=== PATIENT | male | born 1975 | race Caucasian/White ===

== ENCOUNTER 2023-05-24 09:00 | Outpatient (OUT) | payer OTHER, SELFPAY ==
[2023-05-24 10:18] LABS: Alanine Aminotransferase 30 U/L (16-63); Albumin Level 3.4 g/dL (3.4-5.0); Alkaline Phosphatase 62 U/L (46-116); Anion Gap 10.3; Aspartate Amino Transferase 19 U/L (15-37); BUN Creatinine Ratio 22.4; Bilirubin Total 0.5 mg/dL (0.2-1.0); Calcium 8.7 mg/dL (8.5-10.1); Carbon Dioxide 32.1 mmol/L (21.0-32.0); Chloride 106 mmol/L (98-107); Chol HDL Ratio 3.8; Cholesterol 214 mg/dL (<=200); Estimated GFR (African America >60 (>=60); Estimated GFR (Non-African Ame >60 (>=60); Globulin 3.4 g/dL; Glucose 97 mg/dL (74-106); HDL Cholesterol 57 mg/dL (40-60); Potassium 4.4 mmol/L (3.5-5.1); Sodium 144 mmol/L (136-145); Total Protein 6.8 g/dL (6.4-8.2); Triglycerides 73 mg/dL (<=150); VLDL CHOLESTEROL 14.6 mg/dL
== END 2023-05-24 09:01 | disposition home or self-care (01) ==
LOC: LAB 09:05
PROVIDERS: PCP Family Medicine; Visit Provider Family Medicine
DX: Z13.1 Encounter for screening for diabetes mellitus (principal); Z13.220 Encounter for screening for lipoid disorders
CPT/HCPCS: 36415; 80053; 80061

== ENCOUNTER 2025-06-08 09:00 | Outpatient (OUT) | payer BC, SELFPAY ==
--- OUTSIDE RECORDS SUMMARY | 2025-05-26 14:30 | XMS_ITS | Encounter Summary ---
Author Organization [facility] Address [address] [place] [address] Care Team Providers Care Third Miller Name Role Phone Zuhair Ferraro MD Primary Care Provider Reason for Visit * ReasonCommentsAnnual Exam Encounter Details DateTypeDepartmentCare Team (Latest Contact Info)Mzongatobwj84/12/2025 2:30 PM ESTOffice Visit [facility] 112 [facility] 100 [place] [address] Zuhair Ferraro MD 112 [facility] 100 [place] [address] Encounter for wellness examination in adult; Advance directive discussed with patient; Screening for diabetes mellitus (DM); Encounter for lipid screening for cardiovascular disease; Overweight Social History Tobacco UseTypesPacks/DayYears UsedDateSmoking Tobacco: NeverSmokeless Tobacco: Never Tobacco Cessation:Counseling Given: Yes Alcohol UseStandard Drinks/WeekCommentsYes2 (1 standard drink = 0.6 oz pure alcohol)Caffeine intake : energy drinksPHQ-2AnswerDate RecordedPatient Health Questionnaire-2 Tpfwp87707/26/2024Housing Stability Vital SignAnswerDate Recorded In the last 12 months, was there a time when you were not able to pay the mortgage or rent on time?No04/17/2023In the last 12 months, how many places have you lived?In the last 12 months, was there a time when you did not have a steady place to sleep or slept in [facility] (including now)?No04/17/2023 Humiliation, Afraid, Rape, and Kick questionnaireAnswerDate RecordedWithin the last year, have you been afraid of your partner or ex-partner?No05/25/2025Within the last year, have you been humiliated or emotionally abused in other ways by your partner or ex-partner?No05/25/2025Within the last year, have you been kicked, hit, slapped, or otherwise physically hurt by your partner or ex-partner?No05/25/2025Within the last year, have you been raped or forced to have any kind of sexual activity by your partner or ex-partner?No05/25/2025 Social Connection and Isolation PanelAnswerDate RecordedIn a typical week, how many times do you talk on the phone with family, friends, or neighbors?Once a week05/25/2025How often do you get together with friends or relatives?Once a week05/25/2025How often do you attend sabianism or mandaeism services?More than 4 times per year05/25/2025Do you belong to any clubs or organizations such as sabianism groups, unions, fraternal or athletic groups, or school groups?Yes 05/25/2025How often do you attend meetings of the clubs or organizations you belong to?1 to 4 times per year05/25/2025re you , , , , never , or living with a partner?Orvrviz8705/25/2025UDIT-C AnswerDate RecordedQ1: How often do you have a drink containing alcohol?2-3 times a week05/25/2025Q2: How many drinks containing alcohol do you have on a typical day when you are drinking?1 or Q3: How often do you have six or more drinks on one occasion?Less than gdkjhix3905/25/2025Overall Financial Resource Strain (CARDIA)AnswerDate RecordedHow hard is it for you to pay for the very basics like food, housing, medical care, and heating?Not hard at all 05/25/2025[facility] [place] of Occupational Health - Occupational Stress QuestionnaireAnswerDate RecordedDo you feel stress - tense, restless, nervous, or anxious, or unable to sleep at night because yourmind is troubled all the time - these days?Not at all05/25/2025Exercise Vital SignAnswerDate RecordedOn average, how many days per week do you engage in moderate to strenuous exercise (like a brisk walk)?5 days05/25/2025On average, how many minutes do you engage in exercise at this level?40 min05/25/2025Hunger Vital SignAnswerDate Recorded Within the past 12 months, you worried that your food would run out before you got the money to buymore.Never true05/25/2025Within the past 12 months, the food you bought just didn't last and you didn't have money to get more.Never true 05/25/2025PRAPARE - TransportationAnswerDate RecordedIn the past 12 months, has lack of transportation kept you from medical appointments or from getting medications?No05/25/2025In the past 12 months, has lack of transportation kept you from meetings, work, or from getting things needed for daily living?No 05/25/2025Housing Stability Vital SignAnswerDate RecordedIn the last 12 months, was there a time when you were not able to pay the mortgage or rent on time?No 05/25/2025In the past 12 months, how many times have you moved where you were living?t any time in the past 12 months, were you homeless or living in a long term (including now)?No05/25/2025B1300 Health LiteracyAnswerDate RecordedHow often do you need to have someone help you when you read instructions, pamphlets, or other written material from your doctor or pharmacy? Never05/25/2025Sex and Gender InformationValueDate RecordedSex Assigned at Not on fileLegal RllTnda7709/26/2022 6:52 PM EDTGender IdentityNot on fileSexual OrientationNot on filedocumented as of this encounter Last Filed Vital Signs Vital SignReadingTime TakenCommentsBlood Fimozdpv102/6805/26/2025 2:34 PM EST Edxtw731605/26/2025 2:34 PM ESTTemperature--Respiratory Rate--Oxygen Hnrcjrnequ49% 05/26/2025 2:34 PM ESTInhaled Oxygen Concentration--Otkpxc19.2 kg (179 lb) 05/26/2025 2:34 PM RQRTcdgcs464.1 cm (5' 5 )05/26/2025 2:34 PM ESTBody Mass Index29.7905/26/2025 2:34 PM ESTdocumented in this encounter Functional Status * Over the past 2 weeks, how often have you been bothered by any of the following problems?QuestionAnswerDate of AssessmentAuthorLittle interest or pleasure in doing thingsNot at all05/26/2025 2:28 PM Robbie October, [place] Feeling down, depressed, or hopelessNot at all05/26/2025 2:28 PM Robbie, October, [facility]USatient Health Questionnaire-2 Nucwy81007/26/2024 2:28 PM Robbie October, [place] documented as of this encounter Progress Notes * Zuhair Ferraro MD - 05/26/2025 2:30 PM EST Images from the original note were not included. Patient ID: Amadou Toth is a 50 y.o. male who presents for: Pt had a referral for a colonoscopy and never went or responded to their calls. Adult Wellness: Advance Directive/Living Will: No Health Care Power of Occupational Health Nurse Manager: No Review of Systems Constitutional: Negative for appetite change, chills, fever and unexpected weight change. Respiratory: Negative for cough, shortness of breath and wheezing. Cardiovascular: Negative for chest pain, palpitations and leg swelling. Gastrointestinal: Negative for abdominal pain, constipation and diarrhea. Genitourinary: Negative for frequency and urgency. Neurological: Negative for light-headedness and headaches. Psychiatric/Behavioral: Negative for behavioral problems and sleep disturbance. The patient is not nervous/anxious. Objective The patient is pleasant and in no acute distress. The head is normocephalic and atraumatic. Both eyes appear grossly normal without obvious lid pathology or icterus. Both ears hearing is grossly intact. The neck is supple and trachea is midline. No masses are appreciated. The anterior cervical lymphatics demonstrates shoddy bilateral nontender lymphadenopathy. There is no supraclavicular lymphadenopathy. The heart is regular rate and rhythm without S3, S4. No murmur. The patient has normal respiratory pattern. The breath sounds are symmetrical without evidence of rhonchi or rales. No wheezing. The skin is warm and dry. The lower extremities have trace edema. Neurologic screening exam is nonfocal. The patient is alert. There is no overt gross evidence of cognitive impairment The patient has good eye contact and speech is clear. Appropriate affect. No significant external hemorrhoids, normal tone , no masses palpable , no melena , no red blood Prostate: symmetrical, smooth, no nodules or masses, nontender, enlarged 1+. 05/26/2025 2:34 PM 03/19/2024 9:10 AM 01/02/2024 8:25 AM 06/21/2023 11:02 AM Vitals BMI 29.79 kg/m2 26.96 kg/m2 26.96 kg/m2 26.96 kg/m2 BSA (m2) 1.93 m2 1.84 m2 1.84 m2 1.84 m2 Systolic 118 110 Diastolic 68 84 Heart Rate 85 SpO2 94 % Height (in) 5' 5 5' 5 5' 5 5' 5 Weight (lb) 179 162 162 162 Visit Report Report Report Report Allergies Allergen Reactions Delilah [Fexofenadine] Dizziness Zyrtec [Cetirizine] Dizziness Current Outpatient Medications on File Prior to Visit Medication Sig Dispense Refill [DISCONTINUED] predniSONE (Deltasone) 10 MG tablet Every 2 day tapering dose; 5,5,4,4,3,3,2,2,1,1,0.5,0.5 31 tablet 0 No current facility-administered medications on file prior to visit. 1. Encounter for wellness examination in adult I have reviewed the patients PMShx, medications, and reconciled the problem list. Health maintenance and risk was reviewed and discussed. I also reviewed and discussed as appropriate; immunizations, colon cancer screening, prostate cancer screening, and any current or recommended lab evaluation. All items were brought up to date unless declined by the patient. 2. Advance directive discussed with patient Patient voluntarily agreed to discuss advance care planning at today's wellness visit. We discussed that an advance directive is a legal document that only goes into effect if the patient is incapacitated and unable to speak for themselves. This would help us to decide what care the patient would want. We discussed emergency treatments to keep the patient alive such as CPR, ventilator use and concept of comfort. We discussed how patients could make their wishes known through a living will, durable power of workers compensation defense attorney for healthcare, or other advanced directives. We discussed telling romano people about their advance and a copy will be kept in the EHR. I discussedthat they should also make me an emergency contact in their cell phone, and/or notify their POA that I have a copy of the advanced directives. 3. Screening for diabetes mellitus (DM) - Comprehensive metabolic panel; Future - Comprehensive metabolic panel 4. Encounter for lipid screening for cardiovascular disease - Lipid panel; Future - Lipid panel 5. Overweight Please Note: Portions of this chart may have been created using voice recognition software. Occasionally a wrong-word or sound-like substitutions may have occurred due to inherent limitations of the voice recognition software. Please read the chart carefully and recognize, using context, where the substitutions may have occurred. documented in this encounter Plan of Treatment NameTypePriorityAssociated DiagnosesOrder ScheduleComprehensive metabolic panel LabRoutine Screening for diabetes mellitus (DM) Expected: 06/07/2025 (Approximate), Expires: 06/07/2026Lipid panelLabRoutine Encounter for lipid screening for cardiovascular disease Expected: 06/07/2025 (Approximate), Expires: 06/07/2026documented as of this encounter Visit Diagnoses Diagnosis Encounter for wellness examination in adult Advance directive discussed with patient Screening for diabetes mellitus (DM) Screening for diabetes mellitus Encounter for lipid screening for cardiovascular disease Overweight documented in this encounter Care Teams Team MemberRelationshipSpecialtyStart DateEnd Date Zuhair Ferraro MD [address] [place] [address] PCP - GeneralFamily Medicine11/20/22documented as of this encounter
--- OUTSIDE RECORDS SUMMARY | 2025-06-08 09:09 | XMS_ITS | Encounter Summary ---
Author Organization [facility] Address [address] [place] [address] Care Team Providers Care Rn Gastroenterology Name Role Phone Zuhair Ferraro MD Primary Care Provider [phone] Encounter Details DateTypeDepartmentCare Team (Latest Contact Info)Jrfutymfzkx38/19/2025bstract [facility] [place] [address] Family Medicine [address] [place] [address] Zuhair Ferraro MD 112 [facility] [address] [place] [address] Social History Tobacco UseTypesPacks/DayYears UsedDateSmoking Tobacco: NeverSmokeless Tobacco: NeverAlcohol UseStandard Drinks/WeekCommentsYes2 (1 standard drink = 0.6 oz pure alcohol)Caffeine intake : energy drinksPHQ-2AnswerDate RecordedPatient Health Questionnaire-2 Vlrlh83607/26/2024Housing Stability Vital SignAnswerDate Recorded In the last 12 months, was there a time when you were not able to pay the mortgage or rent on time?No04/17/2023In the last 12 months, how many places have you lived?In the last 12 months, was there a time when you did not have a steady place to sleep or slept in ashelter (including now)?No04/17/2023 Humiliation, Afraid, Rape, and Kick [...] relatives?Once a week05/25/2025How often do you attend zoroastrian or mormonism services?More than 4 times per year05/25/2025Do you belong to any clubs or organizations such as zoroastrian groups, unions, fraternal or athletic groups, or school groups?Yes 05/25/2025How often do you attend meetings of the clubs or organizations you belong to?1 to 4 times per year05/25/2025re you , , , , never , or living with a partner?Wbxmgvu7305/25/2025UDIT-C AnswerDate RecordedQ1: How often do you have a drink containing alcohol?2-3 times a week05/25/2025Q2: How many drinks containing alcohol do you have on a typical day when you are drinking?1 or Q3: How often do you have six or more drinks on one occasion?Less than njweqyt5005/25/2025Overall Financial Resource Strain (CARDIA)AnswerDate RecordedHow hard is it for you to pay for the very basics like food, housing, medical care, and heating?Not hard at all 05/25/2025[facility] [place] of Occupational Health - Occupational Stress QuestionnaireAnswerDate [...] were you homeless or living in a correction (including now)?No05/25/2025B1300 Health LiteracyAnswerDate RecordedHow often do you need to have someone help you when you read instructions, pamphlets, or other written material from your doctor or pharmacy? Never05/25/2025Sex and Gender InformationValueDate RecordedSex Assigned at Not on fileLegal LrbUexf5309/26/2022 6:52 PM EDTGender IdentityNot on fileSexual OrientationNot on filedocumented as of this encounter Plan of Treatment Not on file documented as of this encounter Visit Diagnoses Not on filedocumented in this encounter Care Teams Team MemberRelationshipSpecialtyStart DateEnd Date Zuhair Ferraro MD [address] [place] [address] PCP - GeneralFamily Medicine11/20/22documented as of this encounter
--- OUTSIDE RECORDS SUMMARY | 2025-06-08 09:09 | XMS_ITS | Encounter Summary ---
Author Organization [facility] Address [address] [place] [address] Care Team Providers Care Delivery Analyst Name Role Phone Zuhair Ferraro MD Primary Care Provider [phone] Encounter Details DateTypeDepartmentCare Team (Latest Contact Info)Ifftqaniixq72/13/2025Orders Only [facility] [address] Medicine [address] [address] Kanu Ro R, DO [address] [place] [phone] Social History Tobacco UseTypesPacks/DayYears UsedDateSmoking Tobacco: NeverSmokeless Tobacco: NeverAlcohol UseStandard Drinks/WeekCommentsYes2 (1 standard drink = 0.6 oz pure alcohol)Caffeine intake : energy drinksPHQ-2AnswerDate RecordedPatient Health Questionnaire-2 Fllav87307/26/2024Housing Stability Vital SignAnswerDate Recorded In the last [...] relatives?Once a week05/25/2025How often do you attend congregation or anabaptism services?More than 4 times per year05/25/2025Do you belong to any clubs or organizations such as congregation groups, unions, fraternal or athletic groups, or school groups?Yes 05/25/2025How often do you attend meetings of the clubs or organizations you belong to?1 to 4 times per year05/25/2025re you , , , , never , or living with a partner?Gibuuyi2305/25/2025UDIT-C AnswerDate RecordedQ1: How often do you have a drink containing alcohol?2-3 times a week05/25/2025Q2: How many drinks containing alcohol do you have on a typical day when you are drinking?1 or Q3: How often do you have six or more drinks on one occasion?Less than wpoozpb4505/25/2025Overall Financial Resource Strain (CARDIA)AnswerDate RecordedHow hard is it for you to pay for the very basics like food, housing, medical care, and heating?Not hard at all 05/25/2025[facility] [place] of Occupational Health - Occupational Stress QuestionnaireAnswerDate [...] were you homeless or living in a fdc (including now)?No05/25/2025B1300 Health LiteracyAnswerDate RecordedHow often do you need to have someone help you when you read instructions, pamphlets, or other written material from your doctor or pharmacy? Never05/25/2025Sex and Gender InformationValueDate RecordedSex Assigned at Not on fileLegal ChlEdgh2209/26/2022 6:52 PM EDTGender IdentityNot on fileSexual OrientationNot on filedocumented as of this encounter Plan of Treatment Not on file documented as of this encounter Procedures Procedure NamePriorityDate/TimeAssociated DiagnosisCommentsCBC (INCLUDES DIFF/PLT)Cmfsydn0005/12/2025 2:43 PM EDTLIPID LWWNVOnqjqhz74/29/2025 2:43 PM EDT COMPREHENSIVE METABOLIC HFRNCBcnxavr07/29/2025 2:43 PM EDTdocumented in this encounter Results * CBC and differential (05/12/2025 2:43 PM EDT)Specimen (Source)Anatomical Location / LateralityCollection Method / VolumeCollection TimeReceived Time BloodVenous blood specimen / Unknown Narrative Authorizing ProviderResult TypeResult StatusBrett R Kuns DOLAB BLOOD ORDERABLES Final Result * Comprehensive metabolic panel (05/12/2025 2:43 PM EDT)Specimen (Source) Anatomical Location / LateralityCollection Method / VolumeCollection Time Received TimeBloodVenous blood specimen / Unknown Narrative Authorizing ProviderResult TypeResult StatusBrett R Kuns DOLAB BLOOD ORDERABLES Final Result * Lipid panel (05/12/2025 2:43 PM EDT)Specimen (Source)Anatomical Location / LateralityCollection Method / VolumeCollection TimeReceived TimeBloodVenous blood specimen / Unknown Narrative Authorizing ProviderResult TypeResult StatusBrett R Kuns DOLAB BLOOD ORDERABLES Final Result documented in this encounter Visit Diagnoses Not on filedocumented in this encounter Care Teams Team MemberRelationshipSpecialtyStart DateEnd Date Zuhair Ferraro MD [address] [place] [id number] PCP - GeneralFamily Medicine11/20/22documented as of this encounter
--- OUTSIDE RECORDS SUMMARY | 2025-06-08 09:09 | XMS_ITS | Encounter Summary ---
Author Organization [facility] Address [address] [place] [address] Care Team Providers Care Engraver Copperplate Name Role Phone Zuhair Ferraro MD Primary Care Provider [phone] Encounter Details DateTypeDepartmentCare Team (Latest Contact Info)Iwwroamyfbb63/11/2025Travel Social History Tobacco UseTypesPacks/DayYears UsedDateSmoking Tobacco: NeverSmokeless Tobacco: NeverAlcohol UseStandard Drinks/WeekCommentsYes2 (1 standard drink = 0.6 oz pure alcohol)Caffeine intake : energy drinksPHQ-2AnswerDate RecordedPatient Health Questionnaire-2 Heamr81007/26/2024Housing Stability Vital SignAnswerDate Recorded In the last 12 months, was there a time when you were not able to pay the mortgage or rent on time?No04/17/2023In the last 12 months, how many places have you lived?In the last 12 months, was there a time when you did not have a steady place to sleep or slept in [facility] (including now)?No04/17/2023 Humiliation, Afraid, Rape, and Kick [...] week05/25/2025How often do you attend congregation or episcopalian services?More than 4 times per year05/25/2025Do you belong to any clubs or organizations such as congregation groups, unions, fraRe[employer] or athletic groups, or school groups?Yes 05/25/2025How often do you attend meetings of the clubs or organizations you belong to?1 to 4 times per year05/25/2025re you , , , , never , or living with a partner?Ilslfhv7605/25/2025UDIT-C AnswerDate RecordedQ1: How often do you have a drink containing alcohol?2-3 times a week05/25/2025Q2: How many drinks containing alcohol do you have on a typical day when you are drinking?1 or Q3: How often do you have six or more drinks on one occasion?Less than oxauhva4905/25/2025Overall Financial Resource Strain (CARDIA)AnswerDate RecordedHow hard is it for you to pay for the very basics like food, housing, medical care, and heating?Not hard at all 05/25/2025[facility] [place] of Occupational Health - Occupational Stress QuestionnaireAnswerDate [...] were you homeless or living in a mcc (including now)?No05/25/2025B1300 Health LiteracyAnswerDate RecordedHow often do you need to have someone help you when you read instructions, pamphlets, or other written material from your doctor or pharmacy? Never05/25/2025Sex and Gender InformationValueDate RecordedSex Assigned at Not on fileLegal TtdFmin7609/26/2022 6:52 PM EDTGender IdentityNot on fileSexual OrientationNot on filedocumented as of this encounter Functional Status * AUDIT-C ScoreAnswerDate of EhrseklrznDuksrq406/11/2025 2:11 PM Mat, Generic * Q1: How often do you have a drink containing alcohol?AnswerDate of Assessment Author2-3 times a week05/25/2025 2:11 PM Mat Generic * Q2: How many drinks containing alcohol do you have on a typical day when you are drinking?AnswerDate of AssessmentAuthor1 or 2:11 PM EST Jack Generic * Q3: How often do you have six or more drinks on one occasion?AnswerDate of AssessmentAuthorLess than tqtjorn5805/25/2025 2:11 PM ESTMychart, Generic documented as of this encounter Plan of Treatment Not on file documented as of this encounter Visit Diagnoses Not on filedocumented in this encounter Care Teams Team MemberRelationshipSpecialtyStart DateEnd Date Zuhair Ferraro MD [address] [place] [id number] PCP - GeneralFamily Medicine11/20/22documented as of this encounter
--- OUTSIDE RECORDS SUMMARY | 2025-06-08 09:09 | XMS_ITS | Encounter Summary ---
Author Organization [facility] Address [address] [place] [address] Care Team Providers Care Condenser Tester Name Role Phone Zuhair Ferraro MD Primary Care Provider Encounter Details DateTypeDepartmentCare Team (Latest Contact Info)Atadwrvzarx19/12/2025Bamboo flowsheet [facility] [place] [address] Family Medicine [address] [place] [address] Zuhair Ferraro MD [address] [place] [address] Social History Tobacco UseTypesPacks/DayYears UsedDateSmoking Tobacco: NeverSmokeless Tobacco: NeverAlcohol UseStandard Drinks/WeekCommentsYes2 (1 standard drink = 0.6 oz pure alcohol)Caffeine intake : energy drinksPHQ-2AnswerDate RecordedPatient Health Questionnaire-2 Gjnis17207/26/2024Housing Stability Vital SignAnswerDate Recorded In the last [...] relatives?Once a week05/25/2025How often do you attend yazidism or faith services?More than 4 times per year05/25/2025Do you belong to any clubs or organizations such as yazidism groups, unions, fraternal or athletic groups, or school groups?Yes 05/25/2025How often do you attend meetings of the clubs or organizations you belong to?1 to 4 times per year05/25/2025re you , , , , never , or living with a partner?Bsyqedi7505/25/2025UDIT-C AnswerDate RecordedQ1: How often do you have a drink containing alcohol?2-3 times a week05/25/2025Q2: How many drinks containing alcohol do you have on a typical day when you are drinking?1 or Q3: How often do you have six or more drinks on one occasion?Less than ctirsmf2805/25/2025Overall Financial Resource Strain (CARDIA)AnswerDate RecordedHow hard is it for you to pay for the very basics like food, housing, medical care, and heating?Not hard at all 05/25/2025[facility] [place] of Occupational Health - Occupational Stress QuestionnaireAnswerDate [...] were you homeless or living in a prison (including now)?No05/25/2025B1300 Health LiteracyAnswerDate RecordedHow often do you need to have someone help you when you read instructions, pamphlets, or other written material from your doctor or pharmacy? Never05/25/2025Sex and Gender InformationValueDate RecordedSex Assigned at Not on fileLegal MmxMovp5909/26/2022 6:52 PM EDTGender IdentityNot on fileSexual OrientationNot on filedocumented as of this encounter Plan of Treatment Not on file documented as of this encounter Visit Diagnoses Not on filedocumented in this encounter Care Teams Team MemberRelationshipSpecialtyStart DateEnd Date Zuhair Ferraro MD [address] [place] [address] PCP - GeneralFamily Medicine11/20/22documented as of this encounter
--- OUTSIDE RECORDS SUMMARY | 2025-06-08 09:09 | XMS_ITS | Encounter Summary ---
Author Organization [facility] Address [address] [place] [address] Care Team Providers Care Shutdown Coordinator Name Role Phone Zuhair Ferraro MD Primary Care Provider [phone] Encounter Details DateTypeDepartmentCare Team (Latest Contact Info)Jokelsjcjxb56/12/2025Travel Social History Tobacco UseTypesPacks/DayYears UsedDateSmoking Tobacco: NeverSmokeless Tobacco: NeverAlcohol UseStandard Drinks/WeekCommentsYes2 (1 standard drink = 0.6 oz pure alcohol)Caffeine intake : energy drinksPHQ-2AnswerDate RecordedPatient Health Questionnaire-2 Kaguj07407/26/2024Housing Stability Vital SignAnswerDate Recorded In the last 12 months, was there a time when you were not able to pay the mortgage or rent on time?No04/17/2023In the last 12 months, how many places have you lived?In the last 12 months, was there a time when you did not have a steady place to sleep or slept in [facility] (including now)?No04/17/2023 Humiliation, Afraid, Rape, and [...] relatives?Once a week05/25/2025How often do you attend restorationist or yazdanism services?More than 4 times per year05/25/2025Do you belong to any clubs or organizations such as restorationist groups, unions, fraCollegeSolved or athletic groups, or school groups?Yes 05/25/2025How often do you attend meetings of the clubs or organizations you belong to?1 to 4 times per year05/25/2025re you , , , , never , or living with a partner?Fqhrjdo6805/25/2025UDIT-C AnswerDate RecordedQ1: How often do you have a drink containing alcohol?2-3 times a week05/25/2025Q2: How many drinks containing alcohol do you have on a typical day when you are drinking?1 or Q3: How often do you have six or more drinks on one occasion?Less than upixrgs5305/25/2025Overall Financial Resource Strain (CARDIA)AnswerDate RecordedHow hard is it for you to pay for the very basics like food, housing, medical care, and heating?Not hard at all 05/25/2025[facility] [place] of Occupational Health - Occupational Stress QuestionnaireAnswerDate [...] were you homeless or living in a longterm (including now)?No05/25/2025B1300 Health LiteracyAnswerDate RecordedHow often do you need to have someone help you when you read instructions, pamphlets, or other written material from your doctor or pharmacy? Never05/25/2025Sex and Gender InformationValueDate RecordedSex Assigned at Not on fileLegal XwqJnpj8109/26/2022 6:52 PM EDTGender IdentityNot on fileSexual OrientationNot on filedocumented as of this encounter Functional Status * Over the past 2 weeks, how often have you been bothered by any of the following problems?QuestionAnswerDate of AssessmentAuthorLittle interest or pleasure in doing thingsNot at all05/26/2025 2:28 PM Robbie Cassandra, FOREIGN Feeling down, depressed, or hopelessNot at all05/26/2025 2:28 PM Robbie October, VIANEYatient Health Questionnaire-2 Yhsys04807/26/2024 2:28 PM Cassandra Avalos, FOREIGN documented as of this encounter Plan of Treatment Not on file documented as of this encounter Visit Diagnoses Not on filedocumented in this encounter Care Teams Team MemberRelationshipSpecialtyStart DateEnd Date Zuhair Ferraro MD [address] [address] PCP - GeneralFamily Medicine11/20/22documented as of this encounter
--- OUTSIDE RECORDS SUMMARY | 2025-06-08 09:09 | XMS_ITS | Clinical Summary ---
Author Organization [facility] Address [address] [place] [address] Care Team Providers Care Shank Threader Name Role Phone Zuhair Ferraro MD Primary Care Provider [phone] Allergies Active AllergyReactionsCriticalityNoted DateCommentsFexofenadineDizzinessLow 7444OniexxcqjqRlswptacrQwh99/08/2023 Medications MedicationSigDispense QuantityRefillsLast FilledStart DateEnd DateStatus predniSONE (Deltasone) 10 MG tablet Indications:Poison ivyEvery 2 day tapering dose; 5,5,4,4,3,3,2,2,1,1,0.5,0.5 31 tablet Discontinued(Med list cleanup) Active Problems ProblemNoted DateDiagnosed DateDiaphragmatic hernia without obstruction or bgpefvei92/04/1506Eccakgqhgexekt58/04/5266Upfvuszpli27/04/2023Seasonal allergic kyxusevd14/04/2023astro-esophageal reflux disease with wfavcifpvnw08/06/2018 Resolved Problems ProblemNoted DateDiagnosed DateResolved DateEncounter for screening for malignant neoplasm of colonSpecial screening for malignant neoplasms, colon/06/2025 Encounters DateTypeDepartmentCare McneOkhcrvzmskd14/19/2025bstract [facility] [address] [place] [address] Zuhair Ferraro MD 05/27/2025Orders Only [facility] [address] [place] [address] MauroEliana chapatt ChemaDO 05/26/2025 2:30 PM ESTOffice Visit [facility] [address] [place] [address] Zuhair Ferraro MD Encounter for wellness examination in adult; Advance directive discussed with patient; Screening for diabetes mellitus (DM); Encounter for lipid screening for cardiovascular disease; Ymixhgtzxx62/12/2025amboo flowsheet [facility] [place] [address] Zuhair Ferraro MD 05/26/20254820Sgxzgz43/11/2025Travelfrom Last 3 Months Immunizations ImmunizationAdministration DatesNext DueInfluenza, Injectable, MDCK, preservative free05/06/2024Influenza, injectable, quadrivalent, preservative free05/15/2023Influenza, seasonal, apvkoiwpin56/15/2025 Family History Medical HistoryRelationNameCommentsNo Known ProblemsBrotherHeart diseaseFather Hari De La Torre Known ProblemsSisterCystic fibrosisSon1 sonBreast cancerNeg Hx Colon cancerNeg HxOvarian cancerNeg HxRelationNameStatusCommentsBrother1 brother FatherFredward VegamanDeceasedMotherAliveSister1 sisterSon2 sons Social History Tobacco UseTypesPacks/DayYears UsedDateSmoking Tobacco: NeverSmokeless Tobacco: Never Tobacco Cessation:Counseling Given: Yes Alcohol UseStandard Drinks/WeekCommentsYes2 (1 standard drink = 0.6 oz pure alcohol)Caffeine intake : energy drinksPHQ-2AnswerDate RecordedPatient Health Questionnaire-2 Tvalk37507/26/2024Housing Stability Vital SignAnswerDate Recorded In the last 12 months, was there a time when you were not able to pay the mortgage or rent on time?No04/17/2023In the last 12 months, how many places have you lived?In the last 12 months, was there a time when you did not have a steady place to sleep or [facility] ([facility])?No04/17/2023 Humiliation, Afraid, Rape, and Kick [...] relatives?Once a week05/25/2025How often do you attend yazdanism or jain services?More than 4 times per year05/25/2025Do you belong to any clubs or organizations such as yazdanism groups, unions, fraternal or athletic groups, or school groups?Yes 05/25/2025How often do you attend meetings of the clubs or organizations you belong to?1 to 4 times per year05/25/2025re you , , , , never , or living with a partner?Zmayswv3605/25/2025UDIT-C AnswerDate RecordedQ1: How often do you have a drink containing alcohol?2-3 times a week05/25/2025Q2: How many drinks containing alcohol do you have on a typical day when you are drinking?1 or Q3: How often do you have six or more drinks on one occasion?Less than rxvvwpp5105/25/2025Overall Financial Resource Strain (CARDIA)AnswerDate RecordedHow hard is it for you to pay for the very basics like food, housing, medical care, and heating?Not hard at all 05/25/2025[place] of Occupational Health - Occupational Stress QuestionnaireAnswerDate [...] InformationValueDate RecordedSex Assigned at Not on fileLegal DszJiff1509/26/2022 6:52 PM EDTGender IdentityNot on fileSexual OrientationNot on file Last Filed Vital Signs Vital SignReadingTime TakenCommentsBlood Euzafpec402/6805/26/2025 2:34 PM EST Vwhlk217305/26/2025 2:34 PM ESTTemperature--Respiratory Rate--Oxygen Dxxeasriwv00% 05/26/2025 2:34 PM ESTInhaled Oxygen Concentration--Hyiqvj77.2 kg (179 lb) 05/26/2025 2:34 PM MAYEoiuum641.1 cm (5' 5 )05/26/2025 2:34 PM ESTBody Mass Index29.7905/26/2025 2:34 PM EST Plan of Treatment Health MaintenanceDue DateLast DoneCommentsCT Ogxbdxbwmcdb1973Colonoscopy 1973Colorectal Cancer Iewamauyq1973FIT-DNA1973FIT1973 FOBT1973 8579Pjjazlhcbfxsg1973COVID-19 UafkwckVajllrptozbz28/04/2021, 07/21/2020Influenza MqseokhKumsgeqnn93/15/2025, 05/06/2024, 05/15/2023 Pneumococcal Vaccine: Pediatrics (0 to 5 Years) and At-Risk Patients (6 to 64 Years)Aged OutNo longer eligible based on patient's age to complete this topic Procedures Procedure NamePriorityDate/TimeAssociated DiagnosisCommentsCBC (INCLUDES DIFF/PLT)Tpqvtmv8405/12/2025 2:43 PM EDTCOMPREHENSIVE METABOLIC PANELRoutine 05/12/2025 2:43 PM EDTLIPID AIEFKOzonwem52/29/2025 2:43 PM EDTfrom Last 3 Months Results * CBC and differential (05/12/2025 2:43 [...] specimen / Unknown Narrative Authorizing ProviderResult TypeResult StatusElianataina Ro DOLAB BLOOD ORDERABLES Final Result from Last 3 Months Insurance Care Teams Team MemberRelationshipSpecialtyStart DateEnd Zuhair Ferraro MD [address] [address] PCP - GeneralFamily Medicine11/20/22
--- OUTSIDE RECORDS SUMMARY | 2025-06-08 09:10 | XMS_ITS | CCD ---
Author Organization [facility] CliniSytx Care Team Providers Care Apple Picker Name Role Phone PHYSICIAN, DEFAULT Unavailable Unavailable PHYSICIAN, DEFAULT Unavailable Unavailable KOMAL SNELL Unavailable Unavailable ZUHAIR GODFREY Unavailable Unavailable ZUHAIR GODFREY Primary Care Unavailable RAFI MENDIETA Admitting UnavailRAFI Conway Attending UnavailRAFI Conway Consulting UnavailZUHAIR Mayo Attending Unavailable ALEXIA LOU Attending Unavailable ZUHAIR GODFREY Referring Unavailable ALEXIA LUO Attending Unavailable ZUHAIR GODFREY Referring Unavailable ALEXIA LOU H Attending Unavailable ZUHAIR GODFREY Attending Unavailable ZUHAIR GODFREY Attending Unavailable Zuhair Godfrey MD Primary Care Provider [phone] Zuhair Godfrey MD Primary Care Provider [phone] Zuhair Godfrey MD Unavailable Allergies Allergy ClassificationReported Allergen(s)Allergy TypeDate of OnsetReaction(s) Facility (1 source)CetirizineDrug AllergyThe [facility] (4 sources)CetirizineDrug Lgwgtog51-45-1025GlnsblryjHVJZ Healthcare (4 sources)fexofenadineDrug Yrezbsv14-93-3545WgzsogmwvYMGS Healthcare Work Phone: Medications Current Medications MedicationDrug Class(es)DatesSig (Normalized)Sig (Original)cefuroxime 500 mg oral tablet (1 source)Cephalosporin AntibacterialStart: 10-19-2024 End: 84-95-3369kmlu 1 tablet by mouth in the morningcefuroxime (Ceftin) 500 MG tablet Indications: Acute non-recurrent sinusitis, unspecified location Take 1 tablet (500 mg) by mouth in the morning and 1 tablet (500 mg) before bedtime. Do all this for7 days. 14 tablet 10/19/2024 10/26/2024 ActivepredniSONE 10 mg oral tablet (6 sources)Start: 58-16-6927mdtzagIGHM (Deltasone) 10 MG tablet Indications: Poison michael Every 2 day tapering dose; 5,5,4,4,3,3,2,2,1,1,0.5,0.5 31 tablet 03/19/2024 ActiveStart: 21-96-2868gqlpkhZAWZ (Deltasone) 10 MG tablet Indications: Poison michael Every 2 day tapering dose; 5,5,4,4,3,3,2,2,1,1,0.5,0.5 31 tablet 03/19/2024 ActiveStart: 01-02-2024 End: 96-98-4913rxkhlwAYPE (Deltasone) 10 MG tablet Indications: Left tennis elbow Every 2 day tapering dose; 5,5,4,4,3,3,2,2,1,1,0.5,0.5 31 tablet 01/02/2024 03/19/2024 Discontinued (Therapy completed) Problems Active Problems Problem ClassificationProblemDateDocumented DateEpisodic/ChronicDisorders of lipid metabolism (4 sources)Hyperlipidemia; Translations: [Hyperlipidemia, unspecified]Onset: 716850-60-7487RwrzunrUtpbgfwcsj disorders (4 sources)Gastro-esophageal reflux disease with esophagitis; Translations: [Gastro-esophageal reflux disease with esophagitis]Onset: ChronicExternal cause codes: Natural/environment (1 source)Exposure to other specified factors, initial encounter; Translations: [EXPOSURE OTHER SPEC FACTORS INITIAL]Onset: 00-60-0436Lonly upper respiratory disease (4 sources)Seasonal allergic rhinitis; Translations: [Other seasonal allergic rhinitis]Onset: 985046-88-1221TqemgiyGbjwn upper respiratory infections (1 source)Acute sinusitis; Translations: [Acute sinusitis, unspecified] 98-80-4256OhcfqnplEokiccli codes; unclassified (1 source)Contact with and (suspected) exposure to potentially hazardous body fluids; Translations: [CONTACT AND EXPOS POTENTL HAZ BDY FLUID]Onset: 01-20-2019 EpisodicSuperficial injury; contusion (5 sources)Abrasion of left forearm, initial encounter; Translations: [Abrasion of right forearm, initial encounter]Onset: 96-53-7718Ylovjfqx Past or Other Problems Problem ClassificationProblemDateDocumented DateEpisodic/ChronicAbdominal hernia (4 sources)Diaphragmatic hernia; Translations: [Diaphragmatic hernia without obstruction or gangrene]Onset: 464720-32-3347QaytjbjtWshmrypc reactions (2 sources)Contact dermatitis due to poison michael; Translations: [Allergic contact dermatitis due to plants, except food]27-93-7328VayyaokcNuzkq nutritional; endocrine; and metabolic disorders (4 sources)Overweight; Translations: [Overweight]Onset: EpisodicOther screening for suspected conditions (not mental disorders or infectious disease) (8 sources)Patient encounter status; Translations: [Encounter for screening for malignant neoplasm of colon]Onset: 095388-76-8196Oqoqiahm Results Test NameValueInterpretationReference RangeFacilityCOVID-19 Antigenon 07-12-2021 COVID-19 AntigenHealthcare Worker?: Y Milo Reference Milo Reference Negative SARS-CoV+SARS-CoV-2 (COVID-19) Ag [Presence] in Respiratory specimen by Rapid immunoassay Negative for SARS Antigen by SATYA COVID19 Blank Space Milo Disclaimer Negative results, from patients with symptom Milo Disclaimer onset beyond five days, should be treated as Milo Disclaimer presumptive and confirmation with a molecular Milo Disclaimer assay, if necessary, for patient management, Milo Disclaimer may be performed. Negative results do not rule Milo Disclaimer out COVID-19 and should not be used as the sole Milo Disclaimer basis for treatment or patient management Milo Disclaimer decisions, including infection control decisions. Milo Disclaimer Negative results should be considered in the Milo Disclaimer context of a patient's recent exposures, history Milo Disclaimer and the presence of clinical signs and symptoms Milo Disclaimer consistent with COVID-19. COVID19 Blank Space Milo Disclaimer The Milo SARS Antigen SATYA does not differentiate Milo Disclaimer between SARS-CoV and SARS-CoV-2. COVID19 Blank Space Milo Disclaimer This test was developed and its performance Milo Disclaimer characteristic determined by [employer] and Milo Disclaimer validated at [facility]. This Milo Disclaimer test has not been FDA cleared or approved. This Milo Disclaimer test has been authorized by FDA under an Emergency Use Milo Disclaimer Authorization (EUA). This test has been validated Milo Disclaimer in accordance with the FDA's Guidance Document (Policy Milo Disclaimer for Diagnostics Testing in Laboratories Certified to Milo Disclaimer Perform High Complexity Testing under CLIA prior to Milo Disclaimer Emergency Use Authorization for Coronavirus Milo Disclaimer during the Public Health Emergency) Milo Disclaimer issued on October 15, 2019. This test is only authorized Milo Disclaimer for the duration of time the declaration that Milo Disclaimer circumstances exist justifying the authorization of Milo Disclaimer the emergency use of in vitro diagnostic tests for Milo Disclaimer detection of SARS-CoV-2 virus and/or diagnosis of Milo Disclaimer COVID-19 infection under section 564(b)(1) of the Milo Disclaimer Act, 21 U.S.C. 360bbb-3(b)(1), unless the Milo Disclaimer authorization is terminated or revoked sooner. PERFORMED BY: [facility] [address] [id number] PATHOLOGIST HOUSEKEEPING SUPERVISOR TED SAWANT M.D.NormalChildren'S Hospital Of ColumbusComment on above: Performed By: #### DELLA, COVID-19 MILO, COVID 19 [facility] [place] #### [facility] [address] [place] [address] USACOVID-19 FRMCon 85-22-7617QVJG-CoV-2 (COVID-19) RNA JESSIE+probe Ql (Unsp spec)PositiveCritically abnormalNegativeChildren'S Hospital Of ColumbusComment on above:Order Comment: Healthcare Worker?: YResult Comment: Positive results will only be called to Providers for the following groups of patients: Pre-Surgical Testing, Emergency Room, and Inpatients. Testing for SARS-CoV-2 by RT-PCR This test was developed and its performance characteristics determined by [employer] and validated at the [facility]. This test has not been FDA cleared or approved. This test has been authorized by FDA under an Emergency Use Authorization (EUA). This test has been validated in accordance with the FDA's Guidance Document (Policy for Diagnostics Testing in Laboratories Certified to Perform High Complexity Testing under CLIA prior to Emergency Use Authorization for Coronavirus Disease-2019 during the Public Health Emergency) issued on October 15, 2019. This test is only authorized for the duration of time the declaration that circumstances exist justifying the authorization of the emergency use of in vitro diagnostic tests for detection of SARS-CoV-2 virus and/or diagnosis of COVID-19 infection under section 564(b)(1) of the Act, 21 U.S.C. 360bbb-3(b)(1), unless the authorization is terminated or revoked sooner. PERFORMED BY: [address] [id number] PATHOLOGIST HOUSEKEEPING SUPERVISOR TED SAWANT M.D.Performed By: #### DELLA, COVID-19 MILO, [facility] [place] #### [facility] [address] [place] [address] USASofia Ag Negativeon 15-27-1025Nlotu Ag NegativeNegative NormalNegChillicothe HospitalComment on above:Result Comment: This is a duplicate Milo SARS Antigen (SATYA) result to be used for statistical tracking purpose only. PERFORMED BY: [facility] [address] [place] [id number] PATHOLOGIST HOUSEKEEPING SUPERVISOR TED SAWANT M.D.Performed By: #### SOFIANEG, COVID-19 MILO, COVID 19 [facility] [place] #### [facility] [address] [place] [id number] USAHEP B SURFACE AGon 69-56-4739VZhGr ScreenNegativeNormal NegativeWvumedicine Harrison Community HospitalComment on above:Performed By: #### HEPBSUR #### [facility] [address] [place] [address] Cristi KarenHEPATITIIS C VIRUS ANTIBODYon 44-74-3130Khd C Virus Ab0.1 s/co ratio Normal0.0-0.9Wvumedicine Harrison Community HospitalComment on above:Result Comment: Negative: < 0.8 Indeterminate: 0.8 - 0.9 Positive: > 0.9 . The CDC recommends that a positive HCV antibody result be followed up with a HCV Nucleic Acid Amplification test (121420).Performed By: #### HCV #### [facility] [address] [place] [address] Cristi KarenHIV 1/2 RAPID (EXPOSURE ONLY)on 63-47-9939HKJ ABNAshtabula County Medical CenterComment on above:Performed By: #### RPDHIV #### [facility] [address] [place] [address] Cristi KarenHIV AGNAshtabula County Medical CenterComment on above:Performed By: #### RPDHIV #### [facility] [address] [place] [address] Cristi KarenINTERNAL CONTROLSWithin Normal LimitsNormalWithin Normal LimitsThe [facility] HospitalComselect specialty hospital on above:Performed By: #### RPDHIV #### [facility] [address] [place] [address] Cristi KarenRAPID HIV INFOSEE BELOWFulton County Health CenterComselect specialty hospital on above: Result Comment: This test is used for the initial screening of the exposure source. Confirmation ofall results will be obtained through reference lab testing.Performed By: #### RPDHIV #### [facility] [address] [place] [address] Cristi Pulido 37-70-3748DZDUFZQH KINASE.MB:CCNC:PT:SER/PLAS:QN:EIA1.1 ng/mL Normal0.3-4.9Prom[facility] HospitalComment on above:Performed By: #### [id number], [id number], [id number] ####[facility] [address] [place], [place] [address]Galqhyixxem 54-95-6915Xaszumtuw26 ng/mLNormal<=69 [facility] HospitalComment on above:Performed By: #### [id number], [id number], [id number] ####[facility] [address] [place], [place] [address]Tmlxlmxpmt 02-12-2449Newoztok I.cardiac mass concng/mLNormal<=0.03Prom[facility] Toledo HospitalComment on above:Result Comment: New Troponin Assay 11/26/13ROC SD Cutoff value > or = 0.03 ng/mL in conjunction with clinical conditions of myocardial infarction.([email or web address]/guidelines)Performed By: #### [id number], [id number], [id number] ####[facility] [address] [place] [address] Vital Signs Date TimeVital SignValuePerforming IfgojfmktAshiuhlw04-84-8030 09:10-0400Body rdozry561.1 Chang Godfrey MD Work Phone: [facility] HospitalIirnkypoqk09-84-4166 09:10-040Body mass index (BMI) [Ratio]26.96 kg/u5SxuyjcZuhair Godfrey MD Work Phone: [facility] HospitalJqassjankm05-63-4174 09:10-0400Body takvfh20.48 kgZuhair Godfrey MD Work Phone: [facility] Healthcare Encounters Encounter DateEncounter TypeCare ProviderFacilityStart: 10-19-2024 End: 53-94-2021Vcwftmlfh encounterEdannamarie Godfrey MD Work Phone: [facility] 100Start: 03-19-2024 End: 52-00-4295Bpvozt flowsheetZuhair Godfrey MD Work Phone: [facility] 100Start: 03-19-2024 End: 43-08-5961Adfnkw flowsheetZuhair Godfrey MD Work Phone: [facility] 100Start: 03-19-2024 End: 40-38-6580Lsssux outpatient visit 10 minutesEdannamarie Godfrey MD Work Phone: [facility] 100Comment on above:Poison michael (Primary Dx) Start: 03-19-2024 End: 70-21-3681zftpgvsmxpTTYSSY J HEMEYERNot AvailableStart: 01-02-2024 End: 35-32-8504xfjehjcjnrGSPBMC J HEMEYERNot AvailableStart: 07-24-2023 End: 52-87-7306lilpbnmpdeNZZFICX H ITZKOWITZNot AvailableStart: 07-03-2023 End: 56-67-0941rjszmylrjfNDOSPIH H ITZKOWITZNot AvailableStart: 06-21-2023 End: 98-07-0948faiwfnvzjyQRCGQGE H ITZKOWITZNot AvailableStart: 05-28-2023 End: 61-23-3487ifnfqkxlmjUOPUOH J HEMEYERNot AvailableStart: 01-15-2019 End: 32-87-3766Vqhlgty encounter procedureZUHAIR GODFREYFacility:L2Wewif: 02-03-2018 End: 50-63-2298Dgsvbds encounterKOMAL Bear SMITHFacility:FTMCStart: 07-01-2017 End: 30-45-9389FaynaoxurmGGQZMYW PHYSICIANFacility:[facility] Plan of Treatment DateCare ActivityDetailAuthorStart: 17-25-2122Tstjhivgz vaccinationInfluenza Vaccine (Season Ended)[facility] HealthcareStart: 03-19-2024 End: 22-50-7417Ohgvhpa encounter /05/2024 9:30 AM EDT Office Visit [facility] [address] [facility] [address] [place] [id number] Zuhair Godfrey MD [address] [facility] [place] [address] (Fax) ArrivedNOMS CI FM 100Comment on above:ArrivedStart: 94-90-5219Wclbdvtnp vaccinationInfluenza Vaccine (#1)[facility] HealthcareStart: 23-85-9468Mcgwpcihc for malignant neoplasm of colonMOUNTAIN VIEW HOSPITAL Healthcare Immunizations Immunization DateImmunizationNotesCare QsalqvzvGqnbsxor24-98-2950cqvclaovd, injectable, quadrivalent, preservative freeEdannamarie Godfrey MD Work Phone: [facility] Jftzkdvaqo14-54-2902nkowktzmy virus vaccine, unspecified formulationEdannamarie Godfrey MD Work Phone: [facility] Healthcare Payers DatePayer CategoryPayerPolicy [id number] [id number] [id number] Health InsuranceUNIVERSITY HOSPITALS ST. JOHN MEDICAL CENTERCAL PHILO Member Subscriber Plan / Payer (Effective 2022-Present) Name: Amadou Toth V Relation to Subscriber: Self Name: TothAmaduo V Payer ID: Not on file Type: Not on file Address: [address] [place] [id number]-yux10-61-8237 [id number] 2.16.840.1.396937.3.57[id number] 2.16.840.1.937355.3.57[id number] 2.16.840.1.591846.3.579.[id number] 2.16.840.1.232433.3.57[id number] 2.16.840.1.413422.3.57[id number] 2.16.840.1.175899.3.579.2.609373-17-7736Xwhsms's [id number] Social History DateTypeDetailFacilityStart: 28-42-8822Ljrvjak smoking status NHISNever smoked tobaccoNOMS HealthcareStart: 33-25-6860Beudluf use and exposureSmokeless tobacco non-userNOMS HealthcareStart: 01-02-2024 End: 37-00-4072Odgasmubx beverage intakeCurrent drinker of alcohol (finding)[facility] HealthcareStart: 04-17-2023 End: 57-97-2070Wzupnnwwj beverage intakeNOMS HealthcareStart: 04-17-2023 End: 77-46-7196Opkeirhwway, Afraid, Rape, and Kick questionnaire [HARK][facility] HealthcareWithin the last year, have you been afraid of your partner or ex-partner?NoNOMS HealthcareHow often do you attend meetings of the clubs or organizations you belong to?Patient declinedNOMS HealthcareAre you now , , , , never or living with a partner?MarriedNOMS HealthcareHow often to you have a drink containing alcohol?2-3 time sa weekNOMS HealthcareHow many standard drinks containing alcohol do you have on a typical day?1 or 2NOMS HealthcareHow often do you have 6 or more drinks on 1 occasion? Less than monthlyNOMS HealthcareDo you feel stress - tense, restless, nervous, or anxious, or unable to sleep at night because yourmind is troubled all the time - these days [OSQ]Not at allNONH Healthcare(I/We) worried whether (my/our) food would run out before (I/we) got money to buy more.Never trueNONH Healthcare Start: 43-92-6002Ujldohk CommentCaffeine intake : energy drinksNOCarondelet Health Start: 23-65-3220Uyn assigned at birthNot on [facility] Telephone encounter Note 10-19-2024 Note Date & JsdmSubdKrecxclv48-16-9932 Telephone encounter Note* Telephone Encounter - Zuhair Godfrey MD - 10/19/2024 3:05 PM EDT Prescription sent [facility] Healthcare Note 10-19-2024 Note Date & QrswQvuxOpvixdxh66-36-5123 Miscellaneous Notes* Telephone Encounter - Zuhair Godfrey MD - 10/19/2024 3:05 PM EDT Prescription sent * Telephone Encounter - Vanessa Holt - 10/19/2024 2:07 PM EDT Amadou called, He has lots of ellow drainage and congestion the last couple days. He and Ewelina are traveling on Saturday to see family and he is asking if Dr. Godfrey could send something in for him. He doesn't want to take anything to family and get them sick. documented in this encounterNOMS Healthcare Telephone encounter Note 10-19-2024 Note Date & RpoaWjoyBxxjqlkt37-91-5249 Telephone encounter Note* Telephone Encounter - Vanessa Holt - 10/19/2024 2:07 PM EDT Amadou called, He has lots of ellow drainage and congestion the last couple days. He and Ewelina are traveling on Saturday to see family and he is asking if Dr. Godfrey could send something in for him. He doesn't want to take anything to family and get them sick. [facility] History of Present illness Narrative 03-19-2024 Note Date & SzgtFvsgHebvgtbv54-12-0093 History of Present illness Narrative* Zuhair Godfrey MD - 03/19/2024 9:30 AM EDT Images from the original note were not included. Patient ID: Amadou Toth is a 49 y.o. male who presents for: Rash Patient presents for evaluation of a rash involving the lower leg. Rash started 5 days ago. Lesionsare red, and flat in texture. Rash has not changed over time. Rash itchy . Associated symptoms: none. Patient denies: fever and vomiting. Patient has had contacts with similar rash. Patient has had new exposures (soaps, lotions, laundry detergents, foods, medications, plants, insects or animals). He states he mowed Saturday and broke out Saturday. He has been taking benadryl and OTC cream. Review of Systems Constitutional: Negative for chills and fever. Respiratory: Negative for cough, shortness of breath and wheezing. Cardiovascular: Negative for chest pain and palpitations. Gastrointestinal: Negative for abdominal pain. Genitourinary: Negative for frequency and urgency. Objective Both legs with maculopapular exanthem. Areas of confluence N/C, areas of linearity. Visit Vitals Smoking Status Never Clinisync Result Encounter on 01/10/2024 Component Date Value Ref Range Status RUBELLA ANTIBODIES, IGG 01/10/2024 1.86 Immune >0.99 index Final Comment: Non-immune <0.90 Equivocal 0.90 - 0.99 Immune >0.99 MEASLES ANTIBODIES, IGG 01/10/2024 23.5 Immune >16.4 AU/mL Final Comment: Negative <13.5 Equivocal 13.5 - 16.4 Positive >16.4 Presence of antibodies to Rubeola is presumptive evidence of immunity except when acute infection is suspected. MUMPS ABS, IGG 01/10/2024 <9.0 (A) Immune >10.9 AU/mL Final Comment: Negative <9.0 Equivocal 9.0 - 10.9 Positive >10.9 A positive result generally indicates past exposure to Mumps virus or previous vaccination. Performed at: [address] [id number] [employer] Welded Parts: Geraldo Chavez PhD, Phone: [phone] HEPATITIS B SURF AB QUANT 01/10/2024 >1000.0 Immunity>9.9 mIU/mL Final Comment: Status of Immunity Anti-HBs Level Inconsistent with Immunity 0.0 - 9.9 Consistent with Immunity >9.9 Effective January 13, 2024 the reference interval will be changing to: Immunity >10 Performed at: [address] [id number] Inspector Welded Parts: Geraldo Chavez PhD, Phone: [phone] VARICELLA-ZOSTER V AB, IGG 01/10/2024 1803 Immune >165 index Final Comment: Negative <135 Equivocal 135 - 165 Positive >165 A positive result generally indicates exposure to the pathogen or administration of specific immunoglobulins, but it is not indication of active infection or stage of disease. Performed at: [address] [id number] Inspector Welded Parts: Geraldo Chavez PhD, Phone: [phone] QUANTIFERON INCUBATION 01/10/2024 . Final Comment: Incubation performed. Reference Range: . QUANTIFERON-TB GOLD PLUS 01/10/2024 Negative Negative Final Comment: No response to M tuberculosis antigens detected. Infection with M tuberculosis is unlikely, but high risk individuals should be considered for additional testing (ATS/IDSA/CDC Clinical Practice Guidelines, 2017). The reference range is an Antigen minus Nil result of <0.35 IU/mL. Chemiluminescence immunoassay methodology Performed at: [facility] [employer] [id number] Inspector Welded Parts: Geraldo Chavez PhD, Phone: [phone] QUANTIFERON CRITERIA 01/10/2024 Comment . Final Comment: QuantiFERON-TB Gold Plus is a qualitative indirect test for M tuberculosis infection (including disease) and is intended for use in conjunction with risk assessment, radiography, and other medical and diagnostic evaluations. The QuantiFERON-TB Gold Plus result is determined by subtracting the Nil value from either TB antigen (Ag) value. The Mitogen tube serves as a control for the test. QUANTIFERON TB1 AG VALUE 01/10/2024 0.08 . IU/mL Final QUANTIFERON TB2 AG VALUE 01/10/2024 0.10 . IU/mL Final QUANTIFERON NIL VALUE 01/10/2024 0.02 . IU/mL Final QUANTIFERON MITOGEN VALUE 01/10/2024 >10.00 . IU/mL Final Allergies Allergen Reactions Delilah [Fexofenadine] Dizziness Zyrtec [Cetirizine] Dizziness Current Outpatient Medications on File Prior to Visit Medication Sig Dispense Refill predniSONE (Deltasone) 10 MG tablet Every 2 day tapering dose; 5,5,4,4,3,3,2,2,1,1,0.5,0.5 31 tablet 0 No current facility-administered medications on file prior to visit. 1. Poison michael Educated about contact dermatitis. In prescribing a new medication consideration of the following encompasses moderate decision making: the current prescriptions and supplements, the current allergies and medication intolerances, the current medical conditions, and potential drug interactions. Risks, benefits, and reason for starting their medication were discussed. The patient was given a chance to ask questions today and all questions were answered. The patient is to contact us if any other questions arise or if any problems occur with the adjustment in their medication. - predniSONE (Deltasone) 10 MG tablet; Every 2 day tapering dose; 5,5,4,4,3,3,2,2,1,1,0.5,0.5 Dispense: 31 tablet; Refill: 0 documented in this encounterNOMS Healthcare Evaluation note Note Date & TypeNoteFacilityEvaluation note* Diagnosis Poison michael- Primary Contact dermatitis and other eczema due to plants (except food) documented in this encounter [facility] Evaluation note Note Date & TypeNoteFacilityEvaluation note* Diagnosis Acute non-recurrent sinusitis, unspecified location- Primary documented in this encounter [facility] Summary Purpose Family History No Family History Records FoundNo Family History Records FoundNo Family History Records FoundNo Family History Records FoundNo Family History Records Found Advance Directives No Advanced Directives Records FoundNo Advanced Directives Records FoundNo Advanced Directives Records FoundNo Advanced Directives Records FoundNo Advanced Directives Records Found Additional Source Comments (unrecognized sect ion and content) No Status Records FoundNo Status Records FoundNo Status Records FoundNo Status Records FoundNo Status Records Found INFORMATION SOURCE (unrecogn ized section and content) DATE CREATED AUTHOR 01/07/2018 [facility] DATE CREATED AUTHOR AUTHOR'S ORGANIZ ATION 02/07/2018 [facility] DATE CREATED AUTHOR AUTHOR'S ORGANIZ ATION 03/07/2019 [facility] DATE CREATED AUTHOR AUTHOR'S ORGANIZ ATION 08/09/2021 [facility] DATE CREATED AUTHOR AUTHOR'S ORGANIZ ATION 03/20/2024 [facility] EPIC Care Teams (unrecognized sec tion and content) Team MemberRelationshipSpecialtyStart DateEnd Date Zuhair Godfrey MD [address] [place] [address] (Fax) PCP - [facility]11/20/22Team MemberRelationshipSpecialtyStart DateEnd Date Zuhair Godfrey MD [address] [place] [address] (Fax) PCP - GeneralFami Medicine11/20/22Team MemberRelationshipSpecialtyStart DateEnd Date Zuhair Godfrey MD [address] [facility] [place] [address] [facility] - [facility]22 Zuhair Godfrey MD [address] [facility] [place] [address] PCP - Yina [id number]/24 Reason for Visit (unrecogniz ed section and content) ReasonCommentsRash FOR RECORDS PERTAINING TO PATIENTS WHO ARE OR HAVE BEEN ENROLLED IN A CHEMICAL DEPENDENCY/SUBSTANCEABUSE PROGRAM, SOME INFORMATION MAY BE OMITTED. This clinical summary was aggregated from multiple sources. Caution should be exercised in using it in the provision of clinical care. This summary normalizes information from multiple sources, and as a consequence, information in this document may materially change the coding, format and clinical context of patient data. In addition, data may be omitted in some cases. CLINICAL DECISIONS SHOULD BE BASED ON THE PRIMARY CLINICAL RECORDS. [employer] provides no warranty or guarantee of the accuracy or completeness of information in this document.
[2025-06-08 10:07] LABS: Alanine Aminotransferase 32 U/L (16-63); Albumin Globulin Ratio 1.1; Albumin Level 3.4 g/dL (3.4-5.0); Alkaline Phosphatase 69 U/L (46-116); Anion Gap 7.9; Aspartate Amino Transferase 27 U/L (15-37); Blood Urea Nitrogen 23.0 mg/dL (7.0-18.0); Calcium 8.7 mg/dL (8.5-10.1); Carbon Dioxide 33.5 mmol/L (21.0-32.0); Chloride 105 mmol/L (98-107); Cholesterol 222 mg/dL (<=200); Estimated GFR (African America >60 (>=60 mL/min/1.73m^2); Estimated GFR (Non-African Ame 58 (>=60 mL/min/1.73m^2); Globulin 3.1 g/dL; Glucose 100 mg/dL (74-106); HDL Cholesterol 50 mg/dL (40-60); Potassium 4.4 mmol/L (3.5-5.1); Sodium 142 mmol/L (136-145); Total Protein 6.5 g/dL (6.4-8.2); Triglycerides 77 mg/dL (<=150); VLDL CHOLESTEROL 15.4 mg/dL
== END 2025-06-08 09:01 | disposition home or self-care (01) ==
LOC: LAB 09:07
PROVIDERS: PCP Family Medicine; Visit Provider Family Medicine
DX: Z13.220 Encounter for screening for lipoid disorders (principal); Z13.6 Encounter for screening for cardiovascular disorders; Z13.1 Encounter for screening for diabetes mellitus
CPT/HCPCS: 36415; 80053; 80061